=== PATIENT | female | born 1955 | race Caucasian/White ===

== ENCOUNTER 2021-07-12 10:05 | Emergency (ER) | payer BC ==
[2021-07-12] MEDS ORDERED: Phenylephrine HCl 10 MG/ML 1 ML VIAL ONE (10:41)
[2021-07-12] MEDS ORDERED: PHENYLEPHRINE 0.5% NOSE 15ML NAS ONE (10:43)
[2021-07-12 10:59] LABS: Absolute Lymphocytes (CBC) 1.9 K/uL (0.7-4.9); Basophils % 0.8 % (0-1.3); Lymphocytes % 21.3 % (15.3-44.8); MPV 10.4 fL (7.6-11.3); RBC Red Blood Cell Count 4.76 M/uL (3.86-4.86)
--- NOTE | 2021-07-12 12:06 | EDPHYS ---
Physician Documentation [facility] Name: Esthela Moura Age: 65 yrs Sex: Female : 1955 Arrival Date: 07/12/2021 Time: 10:05 Bed 14 Private MD: Murphy You ED Physician Cas Lopez HPI: 07/12 12:01 This 65 yrs old Female presents to ER via Ambulatory with complaints of Nose Bleed. jmm 12:01 The patient presents with a nose bleed. Onset: The symptoms/episode began/occurred jmm gradually, 1 day(s) ago. Modifying factors: The symptoms are alleviated by nothing. the symptoms are aggravated by nothing. Associated signs and symptoms: Loss of consciousness: the patient experienced no loss of consciousness. Is a 65-year-old with history of hypertension, sleep apnea, hypothyroidism that presents emerged department with complaints of nosebleed which has been intermittent over the past day and a half. Patient states she uses a CPAP machine but does not use the humidifier.. Historical: - Allergies: 10:26 Iodine; iw 10:26 Sulfa (Sulfonamide Antibiotics); iw 10:26 TRIMETHOPRIM; iw - PMHx: 10:26 Hypertension; Hypothyroidism; iw - Immunization history:: Client reports receiving the 2nd dose of the Covid vaccine. - Social history:: Smoking status: Patient denies any tobacco usage or history of. ROS: 12:01 Constitutional: Negative for fever, chills, and weight loss. jmm 12:01 Cardiovascular: Negative for chest pain, palpitations, and edema, Respiratory: Negative for shortness of breath, cough, wheezing, and pleuritic chest pain. 12:01 ENT: Positive for nose bleed. 12:01 All other systems are negative. Exam: 12:01 Constitutional: This is a well developed, well nourished patient who is awake, alert, jmm and in no acute distress. Head/Face: atraumatic. Eyes: EOMI, no conjunctival erythema appreciated 12:01 Neck: Trachea midline, Supple Chest/axilla: Normal chest wall appearance and motion. Cardiovascular: Regular rate and rhythm. No edema appreciated Respiratory: Normal respirations, no respiratory distress appreciated Abdomen/GI: Non distended, soft Back: Normal ROM Skin: General appearance color normal MS/ Extremity: Moves all extremities, no obvious deformities appreciated, no edema noted to the lower extremities Neuro: Awake and alert, normal gait Psych: Behavior is normal, Mood is normal, Patient is cooperative and pleasant 12:01 ENT: Clotted blood noted mucosa is edematous. Vital Signs: 10:28 BP 162 / 89; Pulse 74; Resp 16; Pulse Ox 99% on R/A; Weight 139.71 kg; Height 5 ft. 2 iw in. (157.48 cm); 11:15 BP 158 / 81; Pulse 66; Resp 14; Pulse Ox 97% on R/A; jg9 11:45 BP 162 / 79; Pulse 66; Resp 17 S; Pulse Ox 96% on R/A; jg9 10:28 Body Mass Index 56.33 (139.71 kg, 157.48 cm) iw MDM: 10:23 Patient medically screened. yanira 12:04 Data reviewed: vital signs, nurses notes. Counseling: I had a detailed discussion with [facility] the patient and/or guardian regarding: the historical points, exam findings, and any diagnostic results supporting the discharge/admit diagnosis, the need for outpatient follow up, to return to the emergency department if symptoms worsen or persist or if there are any questions or concerns that arise at home. ED course: No active bleeding appreciated in the ED. Normal CBC. Patient encouraged to follow-up with ENT for further evaluation otherwise given strict return precautions. Patient understood agrees plan of care. 07/12 10:30 Order name: CBC with Diff; Complete Time: 11:[address] [facility] 07/12 10:31 Order name: Misc. Order: neosynephrine in gauze, nose clamps; Complete Time: 12:[address] [facility] Administered Medications: 10:44 Drug: Wilfredo-Synephrine (phenylephrine) [place] 0.5 % 2 sprays Route: Intranasal; Site: left jg9 nare; Disposition: 07/13 10:29 Co-signature as Attending Physician, Cas Lopez MD I agree with the assessment and [facility] plan of care. Disposition Summary: 07/12/21 12:05 Discharge Ordered Location: Home [facility] Condition: Stable [facility] Diagnosis - Epistaxis [facility] Followup: [facility] - With: Tabitha Mistry MD - When: 2 - 3 days - Reason: Recheck today's complaints, Continuance of care, Re-evaluation by your physician Discharge Instructions: - Discharge Summary Sheet jmm - Nosebleed, Adult jmm Forms: - Medication Reconciliation Form jmm - Thank You Letter jmm - Antibiotic Education jmm - Prescription Opioid Use donna Signatures: Dispatcher [employer] Cas Mattson MD MD cha Mickail, Joel, PA PA jmm Williams, Irene, JANET RN Nava Bermudez jg9
--- NOTE | 2021-07-12 12:06 | ER ---
Nurse's Notes [facility] Name: Esthela Moura Age: 65 yrs Sex: Female : 1955 Arrival Date: 07/12/2021 Time: 10:05 Bed 14 Private MD: Murphy You Diagnosis: Epistaxis Presentation: 07/12 10:24 Chief complaint: Patient states: nose bleed , left nostril since 0700, off and on, has iw been dealing with nosebleeds since last Sunday. Coronavirus screen: At this time, the client does not indicate any symptoms associated with coronavirus-19. Ebola Screen: Patient negative for fever greater than or equal to 101.5 degrees Fahrenheit, and additional compatible Ebola Virus Disease symptoms Patient denies exposure to infectious person. Patient denies travel to an Ebola-affected area in the 21 days before illness onset. No symptoms or risks identified at this time. Initial Sepsis Screen: Does the patient meet any 2 criteria? No. Patient's initial sepsis screen is negative. Does the patient have a suspected source of infection? No. Patient's initial sepsis screen is negative. Risk Assessment: Do you want to hurt yourself or someone else? Patient reports desire/thoughts of hurting themselves or someone else. Provider notified. Onset of symptoms was July 12, 2021. 10:24 Method Of Arrival: Ambulatory iw 10:24 Acuity: KUN 4 iw 10:31 Acuity: KUN 3 iw Historical: - Allergies: 10:26 Iodine; iw 10:26 Sulfa (Sulfonamide Antibiotics); iw 10:26 TRIMETHOPRIM; iw - PMHx: 10:26 Hypertension; Hypothyroidism; iw - Immunization history:: Client reports receiving the 2nd dose of the Covid vaccine. - Social history:: Smoking status: Patient denies any tobacco usage or history of. Screenin:15 Abuse screen: Denies threats or abuse. Denies injuries from another. Nutritional jg9 screening: No deficits noted. Tuberculosis screening: No symptoms or risk factors identified. Fall Risk None identified. Assessment: 10:15 General: Appears in no apparent distress. Behavior is calm, cooperative, appropriate jg9 for age, Smells of. Pain: Denies pain. Neuro: No deficits noted. Cardiovascular: No deficits noted. Respiratory: No deficits noted. GI: No deficits noted. : No deficits noted. EENT: Reports nose bleed x4 today, was at PCP office when she informed them of the nose bleeds this morning. Patient reports she didn't start having these nose bleeds until 1 week ago and the only thing that has changed is her htn medication, according to her the PCP does not believe it is related but the patient reports, "that is the only thing that has changed". . Derm: No deficits noted. Musculoskeletal: No deficits noted. Vital Signs: 10:28 BP 162 / 89; Pulse 74; Resp 16; Pulse Ox 99% on R/A; Weight 139.71 kg; Height 5 ft. 2 iw in. (157.48 cm); 11:15 BP 158 / 81; Pulse 66; Resp 14; Pulse Ox 97% on R/A; jg9 11:45 BP 162 / 79; Pulse 66; Resp 17 S; Pulse Ox 96% on R/A; jg9 10:28 Body Mass Index 56.33 (139.71 kg, 157.48 cm) iw ED Course: 10:05 Patient arrived in ED. am2 10:06 Murphy You MD is Private Physician. am2 10:22 Sergio Thomas PA is PHCP. jmm 10:22 Cas Lopez MD is Attending Physician. jmm 10:26 Triage completed. iw 10:28 Arm band placed on. iw 10:33 Nava Carr is Primary Nurse. jg9 10:35 Inserted saline lock: 20 gauge in right forearm, using aseptic technique. jg9 10:38 Patient has correct armband on for positive identification. Bed in low position. Call jg9 light in reach. Side rails up X 1. 11:50 Awaiting lab results, Awaiting disposition. jg9 11:55 disposition. jg9 12:05 Tabitha Mistry MD is Referral Physician. jmm 12:32 No provider procedures requiring assistance completed. jg9 12:32 IV discontinued. jg9 Administered Medications: 10:44 Drug: Wilfredo-Synephrine (phenylephrine) [place] 0.5 % 2 sprays Route: Intranasal; Site: left jg9 nare; Outcome: 12:05 Discharge ordered by . jmm 12:32 Discharged to home ambulatory, with significant other. jg9 12:32 Condition: stable 12:32 Discharge instructions given to patient, Instructed on discharge instructions, follow up and referral plans. Demonstrated understanding of instructions, follow-up care. 12:33 Patient left the ED. jg9 Signatures: Sergio Thomas PA PA jmm Williams, Irene, RN RN iw Moreno, Amanda am2 Gilmore, Jennifer jg9 Corrections: (The following items were deleted from the chart) 11:59 11:58 Reassessment: jg9 jg9
[2021-07-12 12:41] VITALS: BP 162/79; O2SAT 96
== END 2021-07-12 12:33 | disposition home or self-care (01) ==
LOC: ER 10:05
DX: R04.0 Epistaxis (principal); I10 Essential (primary) hypertension; Z88.2 Allergy status to sulfonamides; Z88.8 Allergy status to other drugs, medicaments and biological substances; Z91.048 Other nonmedicinal substance allergy status
CPT/HCPCS: 36415; 85025; 99283; J2370

== ENCOUNTER 2024-11-13 09:44 | Inpatient (IN) | payer BC, OTHER ==
--- OUTSIDE RECORDS SUMMARY | 2024-11-13 09:48 | XMS REPORT | Continuity of Care Document ---
Author Name Unknown Address [address] [place] [address] [place] [address] [address] [place] [address] Care Team Providers Care Logistics Associate Name Role Phone [email or web address] Attending Clinician Unavaila ble [email or web address] Admitting Clinician Unavaila ble Encounters Start Date/Time End Date/Time Encounter Type Admission Type Attending Clinicians Care Facility Care Department Encounter ID Source 2023-06-03 00:00:00 2023-06-03 00:00:00 Outpatient [email or web address] [facility] [id number] [facility]
--- NOTE | 2024-11-13 10:13 | RAD REPORT ---
Procedure: Chest Single View HISTORY: Cough COMPARISON: 2018 FINDINGS: The lungs appear clear of acute infiltrate. No significant pleural effusion noted. The heart is normal size. IMPRESSION: No acute abnormality is displayed.
--- NOTE | 2024-11-13 10:19 | RAD REPORT ---
EXAMINATION: CT MAXILLOFACIAL WITHOUT CONTRAST CLINICAL INDICATION: Left eye pain and swelling TECHNIQUE: Axial images were obtained through the facial bones and orbits without intravenous contras t. Sagittal and coronal reconstructions were created from the data. One or more of the following dose reduction techniques were used: Automated exposure control, adjustment of the mA and/or kV accor ding to patient size, and/or iterative reconstruction. Unless otherwise specified, incidental findings do not require dedicated imaging follow-up. COMPARISON: No prior exam. FINDINGS: Left preseptal edema. The globes are normal size and density. Intraorbital fat is clear. Left maxillary sinus is almost completely opacified with fluid. Moderate ethmoid sinusitis. IMPRESSION: Left preseptal swelling may indicate a cellulitis. No abscess seen. Marked left maxillary sinusitis
[2024-11-13] MEDS ORDERED: VANCOMYCIN 1 GM/VIAL ONE (10:52)
[2024-11-13] MEDS ORDERED: NA CHLORIDE 0.9% 250 ML ONE (10:52)
[2024-11-13] MEDS ORDERED: NA CHLORIDE 0.9% 500 ML ONE (10:53)
[2024-11-13 11:02] LABS: Absolute Basophils 0.1 K/uL (0-0.5); Absolute Eosinophils 0.3 K/uL (0-0.5); Absolute Lymphocytes (CBC) 3.4 K/uL (0.7-4.9); Basophils % 0.8 % (0-1.3); Hemoglobin 14.2 g/dL (12.0-15.0); Lymphocytes % 26.5 % (15.3-44.8); MCH 29.6 pg (27.0-35.0); MCHC 32.9 g/dL (32.0-36.0); MCV 89.9 fL (80-100); Monocytes % 8.1 % (3.3-12.3); Neutrophils % 62.6 % (41.7-73.7); Nucleated Red Blood Cells % 0.1 % (0-0); Platelets 292 thou/uL (152-406); RBC Red Blood Cell Count 4.79 M/uL (3.86-4.86); Red Cell Distribution Width 16.7 % (12.1-15.2)
[2024-11-13 11:06] LABS: PT Prothrombin Time 12.8 SECONDS (10-13.0); Protime INR 1.13
[2024-11-13 11:23] LABS: ALT/SGPT 24 U/L (13-56); AST/SGOT 22 U/L (15-37); Albumin 3.1 g/dL (3.4-5.0); Albumin/Globulin Ratio 0.5 (1.1-1.8); Alkaline Phosphatase 114 U/L (45-117); Anion Gap 5.9 mEq/L (5.0-15.0); BUN Blood Urea Nitrogen 16 mg/dL (7-18); Bicarbonate 34 mEq/L (21-32); Bilirubin Total 0.3 mg/dL (0.2-1.0); Globulin 5.9 g/dL (2.3-3.5); Glomerular Filtration Rate 55 ml/min (=/>90); Glucose Level 87 mg/dL (74-106); Magnesium 2.4 mg/dL (1.6-2.4); NT PRO-BNP 101 pg/mL (<125); Potassium 3.9 mEq/L (3.5-5.1); Sodium Level 140 mEq/L (136-145); Troponin High Sensitivity 4.1 pg/mL (<58.9)
[2024-11-13 11:26] LABS: Bilirubin Direct < 0.2 mg/dL (0-0.2); Bilirubin Indirect, Calculated 0.1 mg/dL (0.2-0.8)
--- NOTE | 2024-11-13 12:20 | ER ---
Nurse's Notes [facility] Name: Esthela Moura Age: 69 yrs Sex: Female : 1955 Arrival Date: 11/13/2024 Time: 09:44 Bed 16 Private MD: Diagnosis: Cellulitis and acute lymphangitis of face-preseptal cellulitis;Cellulitis of left orbit Presentation: 11/13 10:11 Chief complaint: Patient states: L eye irritation, redness, swelling, tearing for 3-[address] You yesterday, not better. Sent in for further evaluation. Coronavirus screen: Client denies travel out of the [place] in the last 14 days. At this time, the client does not indicate any symptoms associated with coronavirus-19. Ebola Screen: Patient denies travel to an Ebola-affected area in the 21 days before illness onset. Initial Sepsis Screen: Does the patient meet any 2 criteria? No. Patient's initial sepsis screen is negative. Does the patient have a suspected source of infection? No. Patient's initial sepsis screen is negative. Risk Assessment: Do you want to hurt yourself or someone else? Patient reports no desire to harm self or others. Onset of symptoms was November 10, 2024. 10:11 Method Of Arrival: Wheelchair ll1 10:11 Acuity: KUN 3 ll1 Historical: - Allergies: 09:50 Iodine; ll1 09:50 Sulfa (Sulfonamide Antibiotics); ll1 09:50 TRIMETHOPRIM; ll1 - PMHx: 09:50 Hypertension; Hypothyroidism; ll1 - Immunization history:: Adult Immunizations up to date. - Social history:: Smoking status: Patient denies any tobacco usage or history of. Screenin:28 [facility] ED Fall Risk Assessment (Adult) History of falling in the last 3 months, db including since admission No falls in past 3 months (0 pts) Confusion or Disorientation No (0 pts) Intoxicated or Sedated No (0 pts) Impaired Gait No (0 pts) Mobility Assist Device Used No (0 pt) Altered Elimination No (0 pt) Score/Fall Risk Level 0 - 2 = Low Risk Oriented to surroundings, Maintained a safe environment. Abuse screen: Denies threats or abuse. Denies injuries from another. Nutritional screening: No deficits noted. Tuberculosis screening: No symptoms or risk factors identified. Assessment: 10:01 Reassessment: not in lobby, in x-ray. ll1 11:30 Reassessment: Patient appears in no apparent distress at this time. Patient and/or db family updated on plan of care and expected duration. Pain level reassessed. Patient is alert, oriented x 3, equal unlabored respirations, skin warm/dry/pink. General: Appears in no apparent distress. comfortable, Behavior is calm, cooperative. Pain: Complains of pain in left eye. Neuro: Level of Consciousness is awake, alert, obeys commands, Oriented to person, place, time, situation. Respiratory: Airway is patent Respiratory effort is even, unlabored, Respiratory pattern is regular, symmetrical. GI: Abdomen is distended. EENT: Eyes REDNESS. 14:28 Reassessment: CALLED PHARMACY FOR ETA FOR TOBREX OINTMENT. STATES FAX MACHINE IS NOT db WORKING AND WILL DELIVER TO ER. Vital Signs: 10:11 BP 165 / 66; Pulse 65; Resp 16; Temp 97.1; Pulse Ox 96% on R/A; Weight 118.39 kg; ll1 Height 5 ft. 2 in. ; Pain 9/10; 11:20 BP 138 / 100; Pulse 67; Resp 18; Pulse Ox 100% on R/A; db 10:11 Body Mass Index 47.74 (118.39 kg, 157.48 cm) ll1 10:11 Pain Scale: Adult ll1 ED Course: 09:47 Patient arrived in ED. al6 09:48 Cas Lopez MD is Attending Physician. yanira 09:50 Arm band placed on. ll1 10:00 CT Facial Bones W/O Con In Process Unspecified. EDMS 10:06 XRAY Chest (1 view) In Process Unspecified. EDMS 10:13 Triage completed. ll1 10:49 Sonia Brody, RN is Primary Nurse. db 11:15 Initial lab(s) drawn, by ED staff, sent to lab. db 11:18 Lactate w/ 2H reflex if indic. Sent. cc6 11:18 Basic Metabolic Panel Sent. cc6 11:18 LFT's Sent. cc6 11:18 Magnesium Sent. cc6 11:18 NT PRO-BNP Sent. cc6 11:18 Troponin HS Sent. cc6 11:18 Blood Culture Adult (2) Sent. cc6 11:28 Patient has correct armband on for positive identification. Bed in low position. Call db light in reach. Side rails up X 1. Client placed on continuous cardiac and pulse oximetry monitoring. NIBP monitoring applied. high school social studies tutor on. Pulse ox on. NIBP on. Warm blanket given. Pillow given. 11:28 Inserted saline lock: 20 gauge in right forearm, using aseptic technique. Blood db collected. Flushed with 10 mL NS. 12:18 Daniel Power MD is Hospitalizing Provider. yanira Administered Medications: 11:15 Drug: NS 0.9% IV 500 ml 500 ml IV at 1 bolus once; to be given as a bolus over 30 db minutes Volume: 500 ml; Route: IV; Rate: 1 bolus; Site: right forearm; 13:00 Follow up: Response: No adverse reaction; IV Status: Completed infusion; IV Intake: db 500ml 11:20 Drug: vancoMYCIN IVPB 1 grams IVPB once over 2 hrs Route: IVPB; Infused Over: 2 hrs; db Site: right forearm; 12:20 Follow up: Response: No adverse reaction; IV Status: Completed infusion; IV Intake: db 250ml 13:01 Not Given (Duplicate Order): tobramycinointment (0.3 %) 1 application Ophthalmic once yanira 13:15 Drug: Ampicillin-Sulbactam Sodium IVPB 3 grams IVPB once over 30 mins; (mix in 100 mL db NS) Route: IVPB; Infused Over: 30 mins; Site: right antecubital; 13:45 Follow up: Response: No adverse reaction; IV Status: Completed infusion; IV Intake: db 100ml 14:29 Drug: Valtrex PO 1000 mg PO once Route: PO; db 15:37 Follow up: Response: No adverse reaction db 14:33 Drug: Tobrex Ophthalmic Ointment 0.3 % 1 application Ophthalmic in left eye once Route: db Ophthalmic; Site: left eye; 15:38 Follow up: Response: No adverse reaction; Pain is decreased db Medication: 14:29 VIS not applicable for this client. db Intake: 12:20 IV: 250ml; Total: 250ml. db 13:00 IV: 500ml; Total: 750ml. db 13:45 IV: 100ml; Total: 850ml. db Outcome: 12:19 Decision to Hospitalize by Provider. yanira 16:43 Patient left the ED. db Signatures: Dispatcher [employer] Cas Mattson MD MD cha Lewis, Lynsay RN RN ll1 Sonia Brody RN RN db Jayashree Cage cc6 Adalgisa Hawkins6
--- NOTE | 2024-11-13 12:20 | EDPHYS ---
Physician Documentation [facility] Name: Esthela Moura Age: 69 yrs Sex: Female : 1955 Arrival Date: 11/13/2024 Time: 09:44 Bed 16 Private MD: ED Physician Cas Lopez HPI: 11/13 12:01 This 69 yrs old Female presents to ER via Wheelchair with complaints of Eye yanira Swelling. Historical: - Allergies: 09:50 Iodine; ll1 09:50 Sulfa (Sulfonamide Antibiotics); ll1 09:50 TRIMETHOPRIM; ll1 - PMHx: 09:50 Hypertension; Hypothyroidism; ll1 - Immunization history:: Adult Immunizations up to date. - Social history:: Smoking status: Patient denies any tobacco usage or history of. ROS: 12:13 Constitutional: Negative for fever, chills, and weight loss, ENT: Negative for injury, yanira pain, and discharge, Neck: Negative for injury, pain, and swelling, Cardiovascular: Negative for chest pain, palpitations, and edema, Respiratory: Negative for shortness of breath, cough, wheezing, and pleuritic chest pain, Abdomen/GI: Negative for abdominal pain, nausea, vomiting, diarrhea, and constipation, Back: Negative for injury and pain, : Negative for injury, bleeding, discharge, and swelling, MS/Extremity: Negative for injury and deformity, Neuro: Negative for headache, weakness, numbness, tingling, and seizure, Psych: Negative for depression, anxiety, suicide ideation, homicidal ideation, and hallucinations, Allergy/Immunology: Negative for hives, rash, and allergies, Endocrine: Negative for neck swelling, polydipsia, polyuria, polyphagia, and marked weight changes, Hematologic/Lymphatic: Negative for swollen nodes, abnormal bleeding, and unusual bruising, 12:13 Eyes: Positive for pain, redness, swelling, of the left upper eyelid and left lower eyelid, Exam: 12:13 Constitutional: This is a well developed, well nourished patient who is awake, alert, yanira and in no acute distress. ENT: Nares patent. No nasal discharge, no septal abnormalities noted. Tympanic membranes are normal and external auditory canals are clear. Oropharynx with no redness, swelling, or masses, exudates, or evidence of obstruction, uvula midline. Mucous membranes moist. Neck: Trachea midline, no thyromegaly or masses palpated, and no cervical lymphadenopathy. Supple, full range of motion without nuchal rigidity, or vertebral point tenderness. No Meningismus. Chest/axilla: Normal chest wall appearance and motion. Nontender with no deformity. No lesions are appreciated. Cardiovascular: Regular rate and rhythm with a normal S1 and S2. No gallops, murmurs, or rubs. Normal PMI, no JVD. No pulse deficits. Respiratory: Lungs have equal breath sounds bilaterally, clear to auscultation and percussion. No rales, rhonchi or wheezes noted. No increased work of breathing, no retractions or nasal flaring. Abdomen/GI: Soft, non-tender, with normal bowel sounds. No distension or tympany. No guarding or rebound. No evidence of tenderness throughout. Back: No spinal tenderness. No costovertebral tenderness. Full range of motion. Skin: Warm, dry with normal turgor. Normal color with no rashes, no lesions, and no evidence of cellulitis. MS/ Extremity: Pulses equal, no cyanosis. Neurovascular intact. Full, normal range of motion., bilateral aka Neuro: Awake and alert, GCS 15, oriented to person, place, time, and situation. Cranial nerves II-XII grossly intact. Motor strength 5/5 in all extremities. Sensory grossly intact. Cerebellar exam normal. Normal gait. Psych: Awake, alert, with orientation to person, place and time. Behavior, mood, and affect are within normal limits. 12:13 Head/face: Noted is erythema, rash, swelling, that is moderate, of the left eye, 15:57 ECG was reviewed by the Attending Physician. [facility] Vital Signs: 10:11 BP 165 / 66; Pulse 65; Resp 16; Temp 97.1; Pulse Ox 96% on R/A; Weight 118.39 kg; ll1 Height 5 ft. 2 in. ; Pain 9/10; 11:20 BP 138 / 100; Pulse 67; Resp 18; Pulse Ox 100% on R/A; db 10:11 Body Mass Index 47.74 (118.39 kg, 157.48 cm) ll1 10:11 Pain Scale: Adult ll1 MDM: 09:49 Medical Screening Exam initiated [facility] 12:14 Differential diagnosis: Corneal abrasion of Data reviewed: vital signs, nurses notes, [facility] lab test result(s), EKG, radiologic studies, CT scan, plain films. Consideration of Admission/Observation Escalation of care including admission/observation considered. I considered the following discharge prescriptions or medication management in the emergency department Medications were administered in the Emergency Department. See MAR. Independent interpretation of the following test(s) in the Emergency Department EKG: See my EKG interpretation above. Test considered but Not performed: MRI: no mri. Historians other than the Patient: pt well informed. Care significantly affected by the following chronic conditions: Hypertension, Obesity. 11/13 09:50 Order name: Basic Metabolic Panel; Complete Time: 12:00 [facility] 11/13 09:50 Order name: CBC with Diff; Complete Time: 12:00 [facility] 11/13 09:50 Order name: LFT's; Complete Time: 12:00 [facility] 11/13 09:50 Order name: Magnesium; Complete Time: 12:00 [facility] 11/13 09:50 Order name: NT PRO-BNP; Complete Time: 12:00 [facility] 11/13 09:50 Order name: PT-INR; Complete Time: 12:00 [facility] 11/13 09:50 Order name: Troponin HS; Complete Time: 12:00 [facility] 11/13 09:50 Order name: Blood Culture Adult (2) [facility] 11/13 09:50 Order name: Lactate w/ 2H reflex if indic.; Complete Time: 12:00 [facility] 11/13 12:25 Order name: Basic Metabolic Panel EDMS 11/13 12:25 Order name: Basic Metabolic Panel EDMS 11/13 12:25 Order name: Basic Metabolic Panel EDMS 11/13 12:25 Order name: Basic Metabolic Panel EDMS 11/13 12:25 Order name: Basic Metabolic Panel EDMS 11/13 12:25 Order name: Basic Metabolic Panel EDMS 11/13 12:25 Order name: Basic Metabolic Panel EDMS 11/13 12:25 Order name: Basic Metabolic Panel EDMS 11/13 12:25 Order name: CBC with Automated Diff EDMS 11/13 12:25 Order name: CBC with Automated Diff EDMS 11/13 12:25 Order name: CBC with Automated Diff EDMS 11/13 12:25 Order name: CBC with Automated Diff EDMS 11/13 12:25 Order name: CBC with Automated Diff EDMS 11/13 12:25 Order name: CBC with Automated Diff EDMS 11/13 12:25 Order name: CBC with Automated Diff EDMS 11/13 12:25 Order name: CBC with Automated Diff EDMS 11/13 12:25 Order name: Comprehensive Metabolic Panel EDMS 11/13 12:25 Order name: Comprehensive Metabolic Panel EDMS 11/13 12:25 Order name: Magnesium EDMS 11/13 12:25 Order name: Magnesium EDMS 11/13 12:25 Order name: Magnesium EDMS 11/13 12:25 Order name: Magnesium EDMS 11/13 12:25 Order name: Magnesium EDMS 11/13 12:25 Order name: Magnesium EDMS 11/13 12:25 Order name: Magnesium EDMS 11/13 12:25 Order name: Magnesium EDMS 11/13 09:50 Order name: XRAY Chest (1 view); Complete Time: 12:00 [facility] 11/13 09:50 Order name: CT Facial Bones W/O Con; Complete Time: 12:00 [facility] 11/13 09:50 Order name: Cardiac monitoring; Complete Time: 11:27 [facility] 11/13 09:50 Order name: EKG - Nurse/Tech; Complete Time: 11:17 [facility] 11/13 09:50 Order name: IV Saline Lock; Complete Time: 11:17 [facility] 11/13 09:50 Order name: Labs collected and sent; Complete Time: 11: [facility] 11/13 09:50 Order name: O2 Per Protocol; Complete Time: 11: [facility] 11/13 09:50 Order name: O2 Sat Monitoring; Complete Time: 11:17 [facility] EC:57 Rate is 65 beats/min. Rhythm is regular. QRS [place] is Normal. UT interval is normal. QRS yanira interval is normal. QT interval is normal. No Q waves. T waves are Normal. No ST changes noted. Clinical impression: NSR w/ Non-specific ST/T Changes and No evidence of ischemia. Interpreted by me. Reviewed by me. Administered Medications: 11:15 Drug: NS 0.9% IV 500 ml 500 ml IV at 1 bolus once; to be given as a bolus over 30 db minutes Volume: 500 ml; Route: IV; Rate: 1 bolus; Site: right forearm; 13:00 Follow up: Response: No adverse reaction; IV Status: Completed infusion; IV Intake: db 500ml 11:20 Drug: vancoMYCIN IVPB 1 grams IVPB once over 2 hrs Route: IVPB; Infused Over: 2 hrs; db Site: right forearm; 12:20 Follow up: Response: No adverse reaction; IV Status: Completed infusion; IV Intake: db 250ml 13:01 Not Given (Duplicate Order): tobramycinointment (0.3 %) 1 application Ophthalmic once yanira 13:15 Drug: Ampicillin-Sulbactam Sodium IVPB 3 grams IVPB once over 30 mins; (mix in 100 mL db NS) Route: IVPB; Infused Over: 30 mins; Site: right antecubital; 13:45 Follow up: Response: No adverse reaction; IV Status: Completed infusion; IV Intake: db 100ml 14:29 Drug: Valtrex PO 1000 mg PO once Route: PO; db 15:37 Follow up: Response: No adverse reaction db 14:33 Drug: Tobrex Ophthalmic Ointment 0.3 % 1 application Ophthalmic in left eye once Route: db Ophthalmic; Site: left eye; 15:38 Follow up: Response: No adverse reaction; Pain is decreased db Disposition Summary: 11/13/24 12:19 Hospitalization Ordered Notes: Hospitalization Status: Inpatient Admission yanira Provider: Daniel Power cha Location: Telemetry/MedSurg (Inpatient) yanira Condition: Stable yanira Problem: new yanira Symptoms: have improved yanira Bed/Room Type: Standard [facility] Room Assignment: 215(11/13/24 15:27) bc6 Diagnosis - Cellulitis and acute lymphangitis of face - preseptal cellulitis yanira - Cellulitis of left orbit yanira Forms: - Medication Reconciliation Form yanira - SBAR form yanira - Leadership Thank You Letter [facility] Signatures: Dispatcher [employer] Cas Mattson MD MD cha Lewis, Lynsay RN RN ll1 Sonia Brody RN RN db Ursula Monreal bc6 Corrections: (The following items were deleted from the chart) 09:51 09:51 Facial Bones W/ [id number] ordered. EDHI EDMS 15:27 12:19 yanira 6
[2024-11-13] MEDS ORDERED: ONDANSETRON 4 MG/2 ML VIAL IV PRN (12:21)
[2024-11-13] MEDS ORDERED: AMPICILLIN/SULBACTAM 3GM/VIAL ONE (12:48)
[2024-11-13] MEDS ORDERED: NA CHLORIDE 0.9% 100 ML ONE (12:49)
[2024-11-13] MEDS: VALACYCLOVIR 500 MG TAB PO ONE (13:00)
[2024-11-13] MEDS: KETOROLAC OPTHALMIC 5 ML BOT OPTH SCH (14:00)
--- NOTE | 2024-11-13 14:02 | P.HP ---
Certification for Inpatient With expected LOS: >2 Midnights Practitioner: I am a practitioner with admitting privileges, knowledge of patient current condition, hospital course, and medical plan of care. Services: Services provided to patient in accordance with Admission requirements found in Title 42 Section 412.3 of the Code of Federal Regulations Patient History Date of Service: 11/13/24 Reason for admission: Left eye swelling, pain History of Present Illness: Six 9-year-old female with history of type 2 diabetes, morbidly obese, with admitted for left eye swelling and pain. Per patient, she been having sinus infection for the past 1 week and was seen at PCPs office yesterday, and given a dose of IV antibiotics and also prescribed oral antibiotics, and today came back for follow-up visit and the AUDIO VIDEO REPAIRER noted that the left eye happened to be more swollen and more tender so patient was referred to the ER for further treatment. At bedside, patient complaining of left eye pain and itching, otherwise no acute distress Allergies Iodinated Contrast Media [Iodinated Contrast- Oral and IV Dye] Allergy (Severe, Verified 10/11/17 21:44) Itching/Hives/Rash Home Medications: Levothyroxine [Synthroid*] 100 mcg PO DAILY 04/17/13 Nebivolol HCl [Bystolic*] 10 mg PO BEDTIME 04/17/13 Dexlansoprazole [Dexilant] 60 mg PO DAILY 10/11/17 - Past Medical/Surgical History Diabetic: No -: GERD -: HYPOTHIROID -: HTN -: hysterectomy -: CHOL - Family History Mother -: Cancer - Social History Alcohol use: Yes CD- Drugs: No Caffeine use: Yes Physical Examination - Physical Exam General: Alert, Oriented x3 HEENT: Atraumatic, Other (Left orbital area tender, with erythema and conjunctival injection) Cardiovascular: No edema, Regular rate/rhythm, Normal S1 S2 Gastrointestinal: Normal bowel sounds Musculoskeletal: No clubbing, No swelling Neurological: Normal gait - Studies Laboratory Data (last 24 hrs) 11/13/24 11/13/24 11/13/24 10:50 10:50 10:50 WBC 12.80 H Hgb 14.2 Hct 43.0 Plt Count 292 PT 12.8 INR 1.13 Sodium 140 Potassium 3.9 BUN 16 Creatinine 1.10 H Glucose 87 Magnesium 2.4 Total Bilirubin 0.3 AST 22 ALT 24 Alkaline Phosphatase 114 Assessment and Plan - Plan 1. Left preseptal cellulitis - On IV and topical antibiotics - Also topical ketorolac eyedrop for pain relief 2. Type 2 diabetes - On sliding scale insulin 3. Morbid obesity 4. DVT prophylaxis - Subcu Lovenox - Advance Directives Does patient have a Living Will: No Does patient have a Durable POA for Healthcare: No
[2024-11-13] MEDS ORDERED: VALACYCLOVIR 500 MG TAB ONE (14:18)
[2024-11-13] MEDS ORDERED: TOBRADEX 0.3-0.1% OPTH OINTMENT ONE (14:40)
[2024-11-13] MEDS: INSULIN REGULAR (HUMAN) 100 UNIT/ML SQ SCH (14:55)
[2024-11-13] MEDS: VANCOMYCIN 2 GM in NA CHLORIDE 0.9% 500 ML IVPB ONE (15:00)
[2024-11-13 15:37] VITALS: BMI 47.7
[2024-11-13 16:24] VITALS: O2SAT 96
[2024-11-13] MEDS: AMPICILLIN/SULBACT 3 GM in NA CHLORIDE 0.9% 100 ML IVPB SCH (17:47)
[2024-11-13] MEDS ORDERED: MOXIFLOXACIN HCL 0.5% 3ML OPTH OPTH SCH (21:00)
[2024-11-13] MEDS: MOXIFLOXACIN HCL 0.5% 3ML OPTH OPTH SCH (21:28)
[2024-11-13] MEDS: METOPROLOL XL 50 MG TAB PO SCH (21:48)
[2024-11-13] MEDS: ACETAMINOPHEN 500 MG TAB PO PRN (21:49)
[2024-11-14 05:55] LABS: Absolute Basophils 0.1 K/uL (0-0.5); Absolute Eosinophils 0.2 K/uL (0-0.5); Absolute Lymphocytes (CBC) 2.6 K/uL (0.7-4.9); Absolute Monocytes 0.7 K/uL (0.1-1.3); Absolute Neutrophil 6.1 K/uL (1.8-8.0); Basophils % 0.6 % (0-1.3); Eosinophils % 2.6 % (0-4.4); Hematocrit 39.8 % (36.0-45.0); Lymphocytes % 26.2 % (15.3-44.8); MCH 29.5 pg (27.0-35.0); MCHC 32.6 g/dL (32.0-36.0); MCV 90.4 fL (80-100); MPV 9.1 fL (7.6-11.3); Monocytes % 7.7 % (3.3-12.3); Neutrophils % 62.9 % (41.7-73.7); Nucleated Red Blood Cells % 0.1 % (0-0); Platelets 222 thou/uL (152-406); Red Cell Distribution Width 16.6 % (12.1-15.2)
[2024-11-14 06:03] LABS: Albumin 2.6 g/dL (3.4-5.0); Albumin/Globulin Ratio 0.6 (1.1-1.8); Bilirubin Total 0.3 mg/dL (0.2-1.0); Globulin 4.4 g/dL (2.3-3.5); Magnesium 2.2 mg/dL (1.6-2.4)
[2024-11-14] MEDS: LEVOTHYROXINE SOD 0.1 MG TAB PO SCH (06:34)
[2024-11-14] MEDS: MORPHINE 2 MG/ML SYR IV PRN (09:46)
--- NOTE | 2024-11-14 13:19 | P.PN ---
Date of Service: 11/14/24 Subjective: Denies any fevers overnight. States the swelling and redness has slightly improved. Denies any vision changes or headache. Discussed imaging findings. Tolerating diet and drink. Review of systems: 10 point review of systems otherwise negative Home Medications: Levothyroxine [Synthroid*] 100 mcg PO DAILY 04/17/13 Nebivolol HCl [Bystolic*] 10 mg PO BEDTIME 04/17/13 Dexlansoprazole [Dexilant] 60 mg PO DAILY 10/11/17 - Past Medical/Surgical History Diabetic: No -: GERD -: HYPOTHIROID -: HTN -: hysterectomy -: CHOL - Family History Mother -: Cancer - Social History Alcohol use: Yes CD- Drugs: No Caffeine use: Yes Physical Examination - Physical Exam General: Alert, Oriented x3 HEENT: Atraumatic, Other (Left orbital area tender, with erythema and conjunctival injection) Cardiovascular: No edema, Regular rate/rhythm, Normal S1 S2 Gastrointestinal: Normal bowel sounds Musculoskeletal: No clubbing, No swelling Neurological: Normal gait - Studies Laboratory Data (last 24 hrs) 11/13/24 11/13/24 11/13/24 10:50 10:50 10:50 WBC 12.80 H Hgb 14.2 Hct 43.0 Plt Count 292 PT 12.8 INR 1.13 Sodium 140 Potassium 3.9 BUN 16 Creatinine 1.10 H Glucose 87 Magnesium 2.4 Total Bilirubin 0.3 AST 22 ALT 24 Alkaline Phosphatase 114 Assessment and Plan - Plan 1. Left preseptal cellulitis - WBC count improved - On IV and topical antibiotics - Also topical ketorolac eyedrop for pain relief 2. Type 2 diabetes - On sliding scale insulin, blood sugar stable 3. Morbid obesity 4. DVT prophylaxis - Subcu Lovenox - Advance Directives Does patient have a Living Will: No Does patient have a Durable POA for Healthcare: No
[2024-11-14] MEDS ORDERED: GLUCAGON 1 MG/VIAL IM PRN (13:58)
[2024-11-14] MEDS ORDERED: D10W 125 ML IV PRN (13:58)
--- NOTE | 2024-11-14 14:18 | EKG ---
Test Date: 2024-11-13 Test Time: 11:05:46 [place] Fl[employer] Installer: PIYUSH MEASUREMENT RESULTS: Intervals: Rate: 64 DC: 136 QRSD: 74 QT: 392 QTc: 404 [place]: P: 22 DC: 136 QRS: -20 T: 36 INTERPRETIVE STATEMENTS: Normal sinus rhythm Septal infarct, age undetermined Abnormal ECG Compared to ECG 10/12/2017 06:38:55 Myocardial infarct finding now present Electronically Signed On 11-14-24 14:13:43 CDT by Aubrey Figueroa
[2024-11-14] MEDS: ENOXAPARIN 40 MG/0.4 ML SQ SCH (17:01)
[2024-11-14] MEDS: VANCOMYCIN 2 GM in NA CHLORIDE 0.9% 500 ML IVPB SCH (23:35)
[2024-11-15 06:09] LABS: Absolute Basophils 0.1 K/uL (0-0.5); Absolute Eosinophils 0.3 K/uL (0-0.5); Absolute Lymphocytes (CBC) 2.2 K/uL (0.7-4.9); Absolute Monocytes 0.6 K/uL (0.1-1.3); Absolute Neutrophil 5.9 K/uL (1.8-8.0); Basophils % 1.3 % (0-1.3); Eosinophils % 3.3 % (0-4.4); Hemoglobin 12.9 g/dL (12.0-15.0); Lymphocytes % 24.2 % (15.3-44.8); MCH 29.6 pg (27.0-35.0); MCHC 33.2 g/dL (32.0-36.0); MCV 89.1 fL (80-100); MPV 8.9 fL (7.6-11.3); Monocytes % 6.3 % (3.3-12.3); Neutrophils % 64.9 % (41.7-73.7); Nucleated Red Blood Cells % 0.1 % (0-0); Platelets 240 thou/uL (152-406); RBC Red Blood Cell Count 4.37 M/uL (3.86-4.86); Red Cell Distribution Width 16.3 % (12.1-15.2)
[2024-11-15 06:28] LABS: Magnesium 2.2 mg/dL (1.6-2.4)
[2024-11-15 08:42] VITALS: TEMP 98.1
[2024-11-15 09:44] LABS: Band Neutrophils 2 % (0-1); Differential Total Cells Count 100; Segmented Neutrophils 64 % (40-80)
[2024-11-15 09:45] LABS: Blood Morphology Comment NOT SEEN (NOT SEEN); Eosinophils 2 % (0-3); Lymphocytes 27 % (15-42); Monocytes 3 % (0-10); Myelocytes 1 % (0-0); Platelet Estimate ADEQ
[2024-11-15] MEDS: AMLODIPINE 5 MG TAB PO ONE (10:12)
--- NOTE | 2024-11-15 11:55 | P.DS ---
Admission Date: 11/13/24 Discharge Date: 11/15/24 Disposition: ROUTINE DISCHARGE Discharge Condition: GOOD Reason for Admission: Left eye swelling, pain Brief History of Present Illness: Patient is 69 years of age admitted with left periorbital cellulitis Hospital Course: Patient was admitted to the hospital did well with topical and an IV antibiotics at the time of discharge her redness of the left eye had improved significantly patient denied any complaints on examination alert oriented responsive ready to go home labs all reviewed cultures are negative patient to be discharged home on on topical antibiotic and oral cephalosporin she is to follow-up with her primary care at the time of discharge vital signs all stable chest clear cardiovascular system unremarkable patient's blood pressure was elevated she does take antihypertensive medications at home and given her 1 dose of amlodipine prior to discharge denies any shortness of breath or chest pain Vital Signs/Physical Exam: Temp Pulse Resp BP Pulse Ox 98.1 F 60 16 184/81 H 94 11/15/24 08:00 11/15/24 10:12 11/15/24 08:00 11/15/24 10:12 11/15/24 08:00 Laboratory Data at Discharge: WBC 9.10 thou/uL (4.3-10.9) 11/15/24 05:53 Hgb 12.9 g/dL (12.0-15.0) 11/15/24 05:53 Hct 39.0 % (36.0-45.0) 11/15/24 05:53 Plt Count 240 thou/uL (152-406) 11/15/24 05:53 PT 12.8 SECONDS (10-13.0) 11/13/24 10:50 INR 1.13 11/13/24 10:50 Sodium 137 mEq/L (136-145) 11/15/24 05:53 Potassium 4.0 mEq/L (3.5-5.1) 11/15/24 05:53 BUN 12 mg/dL (7-18) 11/15/24 05:53 Creatinine 0.88 mg/dL (0.55-1.02) 11/15/24 05:53 Glucose 109 mg/dL (74-106) H 11/15/24 05:53 Magnesium 2.2 mg/dL (1.6-2.4) 11/15/24 05:53 Total Bilirubin 0.3 mg/dL (0.2-1.0) 11/14/24 05:25 AST 23 U/L (15-37) 11/14/24 05:25 ALT 20 U/L (13-56) 11/14/24 05:25 Alkaline Phosphatase 96 U/L (45-117) 11/14/24 05:25 Home Medications: Levothyroxine [Synthroid*] 100 mcg PO DAILY 04/17/13 Aspirin [Aspirin EC 81 MG] 81 mg PO DAILY 11/13/24 Dapagliflozin Propanediol [Farxiga] 10 mg PO DAILY 11/13/24 Fluoxetine HCl 10 mg PO DAILY 11/13/24 Metoprolol Succinate 50 mg PO BEDTIME 11/13/24 Rosuvastatin Calcium 5 mg PO BEDTIME 11/13/24 Cefdinir [Cefdinir*] 300 mg PO BID 10 Days #20 cap 11/15/24 Moxifloxacin HCl [Vigamox 0.5%*] 1 drops OPTH BID 7 Days #1 bottle 11/15/24 New Medications: Cefdinir [Cefdinir*] 300 mg PO BID 10 Days #20 cap Moxifloxacin HCl [Vigamox 0.5%*] 1 drops OPTH BID 7 Days #1 bottle Physician Discharge Instructions: [facility] Continuing Solar Engineer: GUILLERMO Rico [phone]. Expect a call within 1-2 business days from discharge. Call with questions or concerns. Alternate: GUILLERMO Vick [phone]. Followup: Murphy You MD [Primary Care Provider] -
[2024-11-15 12:11] VITALS: BP 147/67
[2024-11-16] MEDS ORDERED: VANCOMYCIN 2.25 GM in NA CHLORIDE 0.9% 500 ML IVPB SCH (11:00)
== END 2024-11-15 12:57 | disposition home or self-care (01) | DRG 121 ==
LOC: ER 09:44 → ERHOLD 12:35 → 2ND 16:08
PROVIDERS: ADMIT Internal Medicine; ATTEND Internal Medicine Sleep Medicine
DX: H05.012 Cellulitis of left orbit (principal); L03.213 Periorbital cellulitis; Z68.42 Body mass index [BMI] 45.0-49.9, adult; E66.01 Morbid (severe) obesity due to excess calories; E03.9 Hypothyroidism, unspecified; I10 Essential (primary) hypertension; K21.9 Gastro-esophageal reflux disease without esophagitis; Z88.2 Allergy status to sulfonamides; Z88.8 Allergy status to other drugs, medicaments and biological substances; Z90.49 Acquired absence of other specified parts of digestive tract; Z91.041 Radiographic dye allergy status; Z79.890 Hormone replacement therapy; Z79.899 Other long term (current) drug therapy; Z90.710 Acquired absence of both cervix and uterus
CPT/HCPCS: 36415; 70486; 71045; 76377; 80048; 80053; 80076; 80202; 82947; 83605; 83735; 83880; 84484; 85025; 85610; 87040; 93005; 99285; J0295; J1650; J1885; J2270; J3370; J7040; J7050